=== PATIENT | female | born 1950 | race Caucasian/White ===

== ENCOUNTER 2016-10-25 15:00 | Inpatient (IN) ==
[2016-10-25 16:19] LABS: MANUAL DIFF NEEDED? NO
[2016-10-25 16:24] LABS: BASO% 0.3 % (0.0-0.8); EOS# 0.41 X1000 (0.0-0.7); EOS% 2.9 % (0.0-10.0); HEMATOCRIT 35.9 % (37.0-47.0); HEMOGLOBIN 11.9 g/dL (12.0-16.0); IMM GRAN# 0.06 X1000 (0.0-0.04); IMM GRAN% 0.4 % (0.0-0.5); LYMPH# 4.01 X1000 (1.2-3.4); LYMPH% 28.6 % (20.5-51.1); MCH 31.2 PG (27-31); MCHC 33.1 g/dL (33-37); MONO# 1.04 X1000 (0.11-0.59); MONO% 7.4 % (1.7-9.3); NEUT% 60.4 % (42.2-75.2); PLT 320 X1000 (130-400); RBC 3.82 XMIL (4.2-5.4)
[2016-10-25] MEDS ORDERED: NS 1,000 ML IV ONE (16:31)
[2016-10-25 16:52] LABS: AGAP 13; ALBUMIN 4.3 g/dL (3.5-5.0); ALKALINE PHOSPHATASE 72 U/L (32-104); BUN 9 mg/dL (8-22); CALCIUM 9.1 mg/dL (8.8-10.2); CHLORIDE 96 mmol/L (98-107); COSMO 265; GOT 14 U/L (10-30); GPT 12 U/L (10-36); LIPASE 23 U/L (13-60); POTASSIUM 3.5 mmol/L (3.5-5.1); SODIUM 132 mmol/L (136-145); TCO2 24 mmol/L (25-35); TOTAL BILIRUBIN < 0.15 mg/dL (0.20-1.00); TOTAL PROTEIN 7.2 g/dL (6.3-8.3)
--- NOTE | 2016-10-25 17:56 | PROVIDER DOCUMENTATION ---
This chart was entered by Antonia Negro Scribe, acting as scribe for Quan Sorensen MD. HPI-Abdominal Pain/GI Problem - General Chief Complaint: Abdominal Pain Stated Complaint: "KNOT ON STOMACH" Time Seen by Provider: 10/25/16 16:26 Source: patient Allergies/Adverse Reactions: Patient Allergies Allergy/AdvReac Type Severity Reaction Status Date / Time cephalexin monohydrate * AdvReac ITCHING Verified 10/25/16 15:12 [From Keflex] Home Medications: Home Medication List Medication Instructions Recorded Confirmed Last Taken Type Unobtainable [Home Meds 10/25/16 10/25/16 Unknown History Unobtainable] - History of Present Illness-ABD Nature of Presenting Problems: Pt is 65 y/o F presents to the ED with knot to periumbilical region. Pt states knot has been present for 3 days. Pt denies F. Abdominal Pain Onset Location: reports: periumbilical Pain Radiation: reports: no radiation Quality of Pain: reports: aching Severity in ED: reports: moderate Onset/Duration: reports: 3 days ago Timing: reports: still present Activities at Onset: reports: light activity Exposure to sick contacts?: No Modifying Factors: improves with: nothing Associated Symptoms: reports: swelling/mass in abdomen (mass in periumbilical region). denies: anxiety, arm pain, back/neck pain, chest pain, constipation, cough, diaphoresis, diarrhea, dizziness, EENT symptoms, fatigue, fever/chills, genitourinary problems, headaches, heartburn, joint pain, loss of appetite, malaise, muscle aches, sinus congestion/drainage, nausea, rash, shortness of breath, sensory/motor loss, pain with inspiration, syncope, vomiting, weakness, trouble walking Last BM: unsure Dark Stools Present?: reports: none noticed Rectal Bleeding: reports: none Rectal Pain: reports: none Emesis Description: reports: none Bruising or Bleeding Gums?: No Similar Symptoms Previously?: Yes Recently seen or treated by another doctor?: No Review of Systems - Adult - REVIEW OF SYSTEMS - ADULT Constitutional: reports: no symptoms reported Eyes: reports: no symptoms reported Ears, Nose, Mouth & Throat: reports: no symptoms reported Cardiovascular: reports: no symptoms reported Respiratory: reports: no symptoms reported Gastrointestinal: reports: abdominal pain (periumbilical). denies: diarrhea, nausea, vomiting Genitourinary: reports: no symptoms reported Musculoskeletal: reports: no symptoms reported Integumentary: reports: no symptoms reported Neurological: reports: no symptoms reported Psychiatric: reports: no symptoms reported Endocrine: reports: no symptoms reported Hematologic/Lymphatic: reports: no symptoms reported Allergic/Immunologic: reports: no symptoms reported All Other Systems: Reviewed and Negative Past History - Adult - PAST MEDICAL HISTORY-ADULT Review of Records: reports: Nursing Assessment Review, Medications Reviewed, Social history reviewed & non-contributory. Major Childhood Illnesses: reports: denies history Cardiovascular: reports: denies history Respiratory: reports: denies history Gastrointestinal: reports: denies history Obstetrical/Gynecological: reports: denies history Genitourinary: reports: denies history Musculoskeletal: reports: denies history Neurological: reports: denies history Endocrine/Immune: reports: denies history Other Conditions: reports: denies history - PRIOR SURGERIES/PROCEDURES Surgical/Procedure History: reports: BTL - IMMUNIZATION STATUS Childhood Immunizations: See Nurse Assessment Flu Vaccine: See Nurse Assessment - FAMILY HISTORY Family History: reviewed, not pertinent - SOCIAL HISTORY Smoking: cigarettes, less than 1 pack/day Provider spent 3-5 mins advising pt. on dangers of tobacco.: Discussed manners to quit use, and f/u contacts for add'l counseling. Substance Use: denies Living Situation: family Physical Exam-General - PHYSICAL EXAM-ADULT Initial Vital Signs Reviewed: Yes - CONSTITUTIONAL General Appearance: appears well, alert, no apparent distress - EYES Eyes: PERRL/EOMI, pink conjunctivae - HEAD, EARS, NOSE, MOUTH & THROAT HENMT: normocephalic/atraumatic, moist mucous membranes, normal ENT inspection, TMs normal, pharynx normal - NECK Neck: non-tender, full range of motion, supple, normal inspection - RESPIRATORY Respiratory: chest non-tender, lungs clear, normal breath sounds, no pleuratic chest pain, no respiratory distress, no accessory muscle use - CARDIOVASCULAR Cardiovascular: normal peripheral pulses, regular rate, rhythm, no edema, no gallop, no JVD, no murmur - GASTROINTESTINAL (ABDOMEN) Abdominal Exam: normal bowel sounds, guarding, tenderness (periumbilical), hernia (periumbilical) - LYMPHATIC Lymphatic: no adenopathy - MUSCULOSKELETAL Back Exam: normal inspection, no CVA tenderness, no vertebral tenderness Extremity: normal range of motion, non-tender, normal gait, normal inspection, no pedal edema, no calf tenderness, normal capillary refill - SKIN Integumentary: normal color, normal turgor, warm/dry, erythema (periumbilical), tenderness (periumbilical), warm (periumbilical) - NEUROLOGIC Neurologic: grossly normal - PSYCHIATRIC Psych/Mental Status: normal mood/affect, oriented x 3 Progress - PLAN OF CARE/RESULTS Progress/Plan/Lab Results: Vital Signs - 8 hr 10/25/16 15:08 Temperature 98.2 F Pulse Rate 100 H Respiratory Rate 18 Blood Pressure 138/068 O2 Sat by Pulse Oximetry 99 Laboratory Results - last 24 hr 10/25/16 16:05 WBC 14.02 H RBC 3.82 L Hgb 11.9 L Hct 35.9 L MCV 94.0 MCH 31.2 H MCHC 33.1 RDW Std Deviation 14.9 H Plt Count 320 MPV 10.0 Immature Gran % (Auto) 0.4 Neut % (Auto) 60.4 Lymph % (Auto) 28.6 [place] % (Auto) 7.4 Eos % (Auto) 2.9 Baso % (Auto) 0.3 Immature Gran # (Auto) 0.06 H Neut # (Auto) 8.46 H Lymph # (Auto) 4.01 H [place] # (Auto) 1.04 H Eos # (Auto) 0.41 Baso # (Auto) 0.04 Orders Category Date Time Status CBC WITH DIFF [HEME] Stat Lab 10/25/16 16:05 Completed COMPREHENSIVE METABOLIC PANEL [CHEM] Stat Lab 10/25/16 16:05 Received LIPASE [CHEM] Stat Lab 10/25/16 16:05 Received urinalysis [URINALYSIS PL W/POSS RFLX CULT] [URINALYSIS Lab 10/25/16 15:27 Uncollected ] Stat Result Diagrams: 10/25/16 16:05 10/25/16 16:05 - CT/MRI 1 CT Study: Abdomen, Pelvis Impression: Abnormal CT Results: strangulated umbilical hernia per Dr. Sorensen - CONSULTS/PCP/HOSPITALIST Notification #1 *Consult/PCP/Hospitalist*: Dr. Rosales Time Discussed: 16:37 Reason/Comments: Dr. Sorensen consulted with Dr. Rosales about Pt Departure - Departure Time of Disposition Decision: 17:54 (transfer to [facility] ) DIAGNOSIS: Strangulated umbilical hernia Disposition: ADMITTED INPATIENT 09 Certified Medical Emergency: Emergent Condition: Stable Referrals and Follow-Ups: Tobias Stevens MD [Primary Care Provider] - - Critical Care Note This patient required my direct & personal management of CC.: No This chart was documented by the indicated scribe, (Antonia Negro Scribe) and accurately reflects the services I performed and decisions made by me, Quan Sorensen MD, as attested by the provider's signature.
[2016-10-25] MEDS ORDERED: XYLOCAINE 1%/EPI 1:100,000 ONE (18:35)
[2016-10-25] MEDS ORDERED: MARCAINE 0.25% PF/EPI 1:200,000 ONE (18:35)
[2016-10-25] MEDS ORDERED: XYLOCAINE 1% ONE (18:36)
[2016-10-25] MEDS ORDERED: MEFOXIN 2 GM/NS 2 GM/50 ML IVPB ONE (18:37)
[2016-10-25 18:43] LABS: BILIRUBIN URINE NEGATIVE (NEGATIVE); BLOOD URINE NEGATIVE (NEGATIVE); CLARITY CLEAR (CLEAR); COLOR YELLOW; GLUCOSE URINE NEGATIVE (NEGATIVE); LEUKOCYTES URINE TRACE (NEGATIVE); NITRITE URINE NEGATIVE (NEGATIVE); PH URINE 6.5; PROTEIN URINE NEGATIVE (NEGATIVE); UROBILINOGEN URINE NORMAL
[2016-10-25 18:47] LABS: URINE CAST NONE SEEN /LPF; URINE CRYSTAL NONE SEEN /HPF; URINE CULTURE PL NEEDED? YES; URINE EPITHELIAL CELLS <10 /HPF (<10); URINE SOURCE CLEAN CATCH; URINE WBC <10 /HPF (<10)
--- NOTE | 2016-10-25 19:16 | HISTORY AND PHYSICAL ---
ADMITTING DIAGNOSIS: Incarcerated strangulated ventral hernia. HISTORY OF PRESENT ILLNESS: A 65-year-old female who noticed a bulge just above her umbilicus several days ago for coughing and causing her more discomfort last day and also noted skin changes at this area. She previously had been able to reduce it but no longer was able reduce it, is causing her intense pain. She came to the [place] ER, had a CT scan that showed incarcerated potentially strangulated ventral hernia containing only preperitoneal fat. No bowel was noted on CT scan. She was transferred over here for definitive surgery. The patient is still reporting significant tenderness over this area. PAST MEDICAL HISTORY: Includes hypertension. PAST SURGICAL HISTORY: Includes left foot surgery. FAMILY HISTORY: Includes diabetes and kidney cancer in her dad. SOCIAL HISTORY: Patient is a current smoker 1 pack per day. Denies illicit drugs. Does reports social alcohol. CURRENT MEDICATIONS: Includes blood pressure medications patient is not sure the exact name, potassium, Neurontin and Robaxin. ALLERGIES: None. REVIEW OF SYSTEMS: A full 10 point review of systems obtained, negative as specified in HPI. PHYSICAL EXAMINATION: VITAL SIGNS: Patient is currently afebrile. Her vital signs have been stable. GENERAL: No acute distress. Alert, interactive female, looks stated age. HEENT: Normocephalic, atraumatic. Pupils equal, round, react to light. Mucous membranes moist. Oropharynx benign. NECK: Supple. Trachea midline. CARDIOVASCULAR: Regular rate and rhythm. LUNGS: Grossly clear. ABDOMEN: Obese. There is a palpable mass just above the umbilicus that represents the hernia. There is skin changes noted with erythema around this area. This area is tender to palpation. There is no peritoneal signs. EXTREMITIES: Moves all extremities. NEUROLOGIC: Grossly intact. SKIN: No signs of jaundice but erythema as noted above. VASCULAR: All extremities perfused. IMAGING: Reviewed. LABORATORY: White blood cell count is 14, hematocrit 35, platelet count 320,000. ASSESSMENT AND PLAN: A 65-year-old female with incarcerated, possible strangulated ventral hernia. Hernia. At this time discussed with patient the need for surgical repair. Given its location and size will plan on open surgical repair. I suspect that she has potentially strangulated preperitoneal fat. If the hernia defect is large enough may need to place mesh. Discussed the risks, benefits, alternatives of the procedure with the patient. All questions were answered. Will observe the patient likely postoperatively in the hospital. cc: Ruy Rosales MD
[2016-10-25] MEDS ORDERED: LR 1,000 ML ONE (20:12)
[2016-10-25] MEDS ORDERED: DIPRIVAN 1% ONE (20:20)
[2016-10-25] MEDS ORDERED: FENTANYL ONE (20:20)
--- NOTE | 2016-10-25 20:33 | OPERATIVE NOTE ---
PROCEDURE DATE: 10/25/2016 PREOPERATIVE DIAGNOSIS: Strangulated ventral hernia. POSTOPERATIVE DIAGNOSIS: Strangulated ventral hernia. PROCEDURE: Open repair of strangulated ventral hernia with mesh (4.3 circular Bard Ventralex mesh). SURGEON: Ruy Rosales MD. GIRLS SWIMMING COACH: None. ANESTHESIA: General endotracheal. INTRAOPERATIVE FINDINGS: Incarcerated and strangulated ventral hernia with a defect measure 1.5 cm with very tenuous fascia. The omentum was a strangulated tissue which was transected. There was no purulence or infection noted. COMPLICATION: None time of dictation. ESTIMATED BLOOD LOSS: 10 mL. BRIEF HISTORY: The patient is a 65-year-old female who presented with redness and bulge in her stomach just above her umbilicus. She had a CT scan that showed it was just contained fat so the patient would benefit from ventral hernia repair. Given the fact that there is potential strangulation we wanted to do this emergently. The risks, benefits, alternatives were discussed. All questions were answered. DESCRIPTION OF PROCEDURE: After informed consent was obtained, patient brought to the operative theatre, placed operating table supine position. General endotracheal anesthesia was then performed without complication. A formal time-out was then performed confirming patient, date, procedure. All were in agreement. At that time attention was in abdomen. After it was prepped and draped and after the time-out we made a midline incision above the umbilicus which measured approximately 5 cm, carried down subcutaneous tissue. We encountered the incarcerated strangulated hernia. It contained omentum. We transected the hernia sac then reduced the viable contents into the abdomen. We did transect some omentum and removed it off the field. At this time we were able to see the defect. We cleaned up the fascia circumferentially. The defect itself measured 1.5 cm. The fascia was very tenuous. Given its anatomical location and size I elected to place a piece of mesh. I placed a 4.3 cm circular Bard Ventralex mesh in place, secured it in place with 0 Tycron with multiple stitches through the mesh with good results. We then closed the fascia on top of the mesh in addition. We irrigated out the area copiously, used local anesthetic to anesthetize the fascia and the subcutaneous tissue closed in layers using 3-0 Vicryl and 4-0 Monocryl, placed a pressure dressing and abdominal binder. The patient tolerated procedure well. Will monitor overnight and likely discharge her in the morning. cc: Ruy Rosales MD
[2016-10-25] MEDS ORDERED: ZOFRAN IV PRN (21:32)
[2016-10-25] MEDS ORDERED: LR 1,000 ML IV SCH (21:32)
[2016-10-25] MEDS: NORCO-10 PO PRN (21:53)
--- NOTE | 2016-10-25 23:45 | Diag Imaging Result Document ---
PROCEDURE NAME: ABDOMEN/PELVIS W/CONTRAST - 10/25/2016 CT ABDOMEN AND PELVIS WITH IV AND ORAL CONTRAST: COMPARISON: None available. FINDINGS: There is trace subsegmental atelectasis at the lung bases. There is a very small supraumbilical ventral wall hernia containing only fat and a small amount of fluid. This may be due to venous stasis and/or early fat necrosis. There is a tiny umbilical hernia that contains only fat just inferior to the supraumbilical hernia. There is no incarcerated bowel. There is no bowel obstruction. There is a fair amount of stool in the colon which could indicate constipation. The remainder of the solid viscera of the abdomen and pelvis and the remainder of the GI tract is essentially unremarkable. No focal inflammatory change, free abdominal gas, or free abdominal fluid is appreciated. IMPRESSION: 1. Small supraumbilical hernia containing only mesenteric fat and trace fluid but no incarcerated bowel. Please see above discussion. 2. Possible mild constipation.
[2016-10-26] MEDS: NORCO-10 PO PRN (05:42)
--- NOTE | 2016-10-26 06:51 | PROGRESS NOTE ---
DATE: 10/26/2016 SUBJECTIVE: Patient doing well after surgery. No major issues. OBJECTIVE: Vital Signs: Patient is currently afebrile. Her vital signs have been stable. General: No acute distress. Cardiovascular: Regular rate and rhythm. Lungs: Grossly clear. Abdomen: Abdominal binder in place. Appropriately tender. ASSESSMENT/PLAN: A 65-year-old, female, status post open repair of a strangulated ventral hernia with mesh. Postoperative state. At this time, will plan on discharging the patient home. I stressed to the patient not to lift more than 10 pounds for 6 weeks and told the patient to wear the abdominal binder for 6 weeks. We will see the patient in 1-2 weeks in my office. cc: Ruy Rosales MD
[2016-10-26 07:40] VITALS: BP 123/50
[2016-10-26] MEDS ORDERED: PERIDEX MT SCH (09:00)
[2016-10-28] MEDS ORDERED: NEOSTIGMINE ONE (09:17)
[2016-10-28] MEDS ORDERED: ZOFRAN ONE (09:17)
[2016-10-28] MEDS ORDERED: SODIUM CHLORIDE 0.9% 20 ML ONE (09:17)
[2016-10-28] MEDS ORDERED: QUELICIN (DOSE) ONE (09:18)
[2016-10-28] MEDS ORDERED: XYLOCAINE-MPF 2% ONE (09:18)
[2016-10-28] MEDS ORDERED: ZEMURON ONE (09:18)
[2016-10-28] MEDS ORDERED: ANESTHESIA PB SET 88 IN 5742 ONE (09:18)
[2016-10-28] MEDS ORDERED: EXTENSION SET 32 IN 4522 ONE (09:18)
[2016-10-28] MEDS ORDERED: ROBINUL ONE (09:18)
[2016-10-28] MEDS ORDERED: NEO-SYNEPHRINE ONE (09:18)
[2016-10-28] MEDS ORDERED: LR 1,000 ML ONE (09:18)
== END 2016-10-26 08:40 | disposition home or self-care (01) ==
LOC: P.ED 15:00 → 4N 21:24
PROVIDERS: ADMIT Surgery; ATTEND Surgery